=== PATIENT | male | born 1930 | race Caucasian/White ===

== ENCOUNTER 2016-05-16 10:29 | Day surgery (SDC) | payer MEDICARE, BC ==
[~2016-05-16 10:29] MED LIST: EZFE 200200 MG PO; FLOMAX4 PO; JANTOVEN1 MG PO; KLOR-CON M2020 MEQ PO; L40 PO; PRESERVISION A1 EACH PO; PROSCAR5 PO; SPIRO25 PO; TOPXL50 PO; VASOTEC10 PO; Z100 PO; ZAROX2.5B PO
[2016-05-16 11:31] LABS: INTERNATIONAL NORMAL RATI 2.1 UNITS (-); PROTIME (NOT ORD) 23.3 SEC (12.0-14.5)
== END 2016-05-16 23:59 | disposition home health service (06) ==
LOC: DMU 10:29
PROVIDERS: Anesthesiology
DX: Z53.9 Procedure and treatment not carried out, unspecified reason (principal); I11.0 Hypertensive heart disease with heart failure; I50.9 Heart failure, unspecified; M19.90 Unspecified osteoarthritis, unspecified site; D64.9 Anemia, unspecified; Z87.891 Personal history of nicotine dependence; Z98.890 Other specified postprocedural states; Z86.010 Personal history of colon polyps
CPT/HCPCS: 85610

== ENCOUNTER 2016-05-27 10:02 | Day surgery (SDC) | payer MEDICARE, BC ==
--- NOTE | ~2016-05-27 | EGD ---
EGD REPORT [facility] [address] [address] NAME: BARRY HERNANDEZ : 32 STATUS : REG [facility]#: [id number] AGE: 85 ADM/REG DATE : 05/27/16 MR#: [id number] REPORT SERV DATE: 05/27/16 DICTATED BY: AAMIR MCKINNON DATE: 05/27/16 REPORT STATUS : Draft [facility] DATE: 05/27/16 [facility] Patient Name: Barry Hernandez Date of : 1930 Attending MD: AAMIR MCKINNON MD Procedure Date No Time: 05/27/2016 Procedure: Colonoscopy Indications: Heme positive stool, Iron deficiency anemia, Weight loss Referring MD: Melissa Dahl Medicines: as per anesthesia Complications: No immediate complications. Procedure: After I obtained informed consent, the scope was passed under direct vision. Throughout the procedure, the patient's blood pressure, pulse, and oxygen saturations were monitored continuously. The PCF [id number] was introduced through the anus and advanced to the cecum, identified by appendiceal orifice and ileocecal valve. The colonoscopy was performed without difficulty. The patient tolerated the procedure. The quality of the bowel preparation was adequate to identify polyps. Findings: The perianal and digital rectal examinations were normal. A sessile polyp was found in the ascending colon. The polyp was 6 mm in size. The polyp was removed with a jumbo cold forceps. Resection and retrieval were complete. A few small-mouthed diverticula were found in the sigmoid colon. Internal hemorrhoids were found during endoscopy and were moderate. tattoo noted in tv colon Impression: - One 6 mm polyp in the ascending colon. Resected and retrieved. - Diverticulosis in the sigmoid colon. - Internal hemorrhoids. Recommendation: - Await pathology results. Procedure Code(s): --- Professional --- 93624, Colonoscopy, flexible, proximal to splenic flexure; with biopsy, single or multiple Diagnosis Code(s): --- Professional --- D12.2, Benign neoplasm of ascending colon K64.8, Other hemorrhoids K57.30, Diverticulosis of large intestine without EGD REPORT [place] [address] [address] NAME: BARRY HERNANDEZ CATHERINE : 32 STATUS : REG [facility] PAT#: [id number] AGE: 85 ADM/REG DATE : 05/27/16 MR#: [id number] REPORT SERV DATE: 05/27/16 DICTATED BY: AAMIR MCKINNON DATE: 05/27/16 REPORT STATUS : Draft TRANSCRIBED BY: [facility] DATE: 05/27/16 perforation or abscess without bleeding R19.5, Other fecal abnormalities D50.9, Iron deficiency anemia, unspecified R63.4, Abnormal weight loss CPT copyright 2013 [employer]. All rights reserved. The codes documented in this report are preliminary and upon admitting manager review may be revised to meet current compliance requirements. AAMIR MCKINNON MD 05/27/2016 2:04 PM This report has been signed electronically. Number of Addenda: 0 Note Initiated On: 05/27/2016 1:16 PM Scope Withdrawal Time 0 hours 13 minutes 32 seconds [address] [address]
[2016-05-27 10:25] LABS: INTERNATIONAL NORMAL RATI 1.4 UNITS (-)
[2016-05-27 10:26] LABS: PROTIME (NOT ORD) 17.1 SEC (12.0-14.5)
== END 2016-05-27 23:59 | disposition home health service (06) ==
LOC: DMU 10:02
PROVIDERS: Anesthesiology; Internal Medicine Gastroenterology
PROC: 0DBK8ZX Excision of Ascending Colon, Via Natural or Artificial Opening Endoscopic, Diagnostic (ICD-10-PCS; principal; 2016-05-27 11:30)
DX: D12.2 Benign neoplasm of ascending colon (principal); K57.30 Diverticulosis of large intestine without perforation or abscess without bleeding; K64.8 Other hemorrhoids; I11.0 Hypertensive heart disease with heart failure; D50.0 Iron deficiency anemia secondary to blood loss (chronic); I50.9 Heart failure, unspecified; I48.91 Unspecified atrial fibrillation; M19.90 Unspecified osteoarthritis, unspecified site; I73.9 Peripheral vascular disease, unspecified; Z87.891 Personal history of nicotine dependence; Z86.010 Personal history of colon polyps; Z98.890 Other specified postprocedural states
CPT/HCPCS: 85610; 88305

== ENCOUNTER 2016-12-02 08:51 | Inpatient (IN) | payer MEDICARE, BC ==
[~2016-12-02] VITALS: Ht 198.1 cm; Wt 134.1 kg
--- NOTE | ~2016-12-02 | DS ---
Discharge Summary [facility] [address] [place]. [address] NAME: BARRY HERNANDEZ CATHERINE : 32 STATUS : DIS IN PAT#: [id number] AGE: 86 ADM/REG DATE : 12/02/16 MR#: [id number] REPORT SERV DATE: 12/08/16 DICTATED BY: JEANNINE CALDERON DATE: 12/07/16 REPORT STATUS : Draft TRANSCRIBED BY: MODL DATE: 12/07/16 ADMISSION DATE: 12/02/2016 DISCHARGE DATE: 12/07/2016 DISCHARGE DIAGNOSES: 1. Symptomatic anemia status post three units of packed RBC with a history of long- standing iron deficiency anemia with intolerance of iron, but he is going back to taking iron p.o. 2. Chronic Coumadin use. INR was supratherapeutic, was on hold for two days, now back to 2.9. We are going to cut it down to 5 mg per diet, resumed tonight. 3. Failure to thrive with increased immobility. The patient has decided to go to [facility]. 4. Chronic systolic heart failure, was on the home regimen of the diuretics, stable. 5. Left arm hematoma, improved. HISTORY OF PRESENT ILLNESS: This is an 86-year-old male patient, who came to the hospital with weakness and increased immobility. Please see dictated H and P done by Dr. Lewis. HOSPITAL COURSE: He was admitted to hospital with anemia and possible rehab discharge plan. He had three units of packed RBC and improved. After he has been improved, he has been evaluated by physical therapy. Disposition was decided to be [facility]. We waited for [facility] approval and he did actually improve with the physical therapies done here and [facility] has approved for his subacute stay and then the patient will be discharged to [facility] for ongoing rehab. I noticed his blood pressure has been around 90-100 with three diuretics from the home and since he has not been having any issue with volume, will like to cut down his Zaroxolyn to twice a week instead of three times a week. DISCHARGE MEDICATION: 1. Allopurinol 100 mg twice a day. 2. Vitamin D once a day. 3. Vasotec 10 mg twice a day. 4. Ezfe 200 mg once a day. 5. Proscar 5 mg once morning. 6. Lasix 40 mg twice a day. 7. Zaroxolyn 2.5 on Mondays and . 8. Toprol-XL 50 mg once a day. 9. Potassium 20 mEq three times a week. 10.Aldactone 25 mg once a day. 11.Flomax 0.4 mg once a day. 12.Coumadin decreased to 5 mg once a day. 13.Multivitamin. 14.Eye drops. Discharge Summary [place] [address] [address] NAME: BARRY HERNANDEZ CATHERINE : 32 STATUS : DIS IN PAT#: [id number] AGE: 86 ADM/REG DATE : 12/02/16 MR#: [id number] REPORT SERV DATE: 12/08/16 DICTATED BY: JEANNINE CALDERON DATE: 12/07/16 REPORT STATUS : Draft TRANSCRIBED BY: RAYNE DATE: 12/07/16 DISPOSITION: Patient is discharged to [facility] for rehab. The patient's family has been updated on a daily basis and the patient is informed about his discharge and plan of followup and he voiced understanding. TIME SPENT: More than 30 minutes. EKL/MODL Jeannine Calderon M.D. / [id number] CC: Kelly Calhoun [facility]IA [facility]
--- NOTE | ~2016-12-02 | HP ---
History And Physical [place] [id number] [place]. [address] NAME: BARRY HERNANDEZ CATHERINE : 32 STATUS : ADM [facility] PAT#: [id number] AGE: 86 ADM/REG DATE : 12/02/16 MR#: [id number] REPORT SERV DATE: 12/02/16 DICTATED BY: AAMIR PAYNE DATE: 12/02/16 REPORT STATUS : Draft TRANSCRIBED BY: MODL DATE: 12/02/16 DATE OF ADMISSION: 12/02/2016 REASON FOR ADMISSION: Shortness of breath and dyspnea on exertion. HISTORY OF PRESENT ILLNESS: This is an 86-year-old white male, in the assisted living facility in [place]. He moved down here four years ago from [place], [place], where he lived for many years. He has first cardiac pacemaker placed at age 43 because of bradycardia. He has had subsequently four pacemakers placed in the past. He is on Coumadin because of chronic atrial fibrillation. He does have falling and unsteady gait now. He fell and has a huge ecchymosis of his left arm and he also fell and hurt his back. He was in the emergency room at [facility] on 11/27/2016 and was urged to have transfusion as his was hematocrit 21%. He is brought back now with the intention to give transfusion and help with the swelling. His upper extremities have swelling more than usual. His lower extremities are about a swelling as they usually are chronically. His creatinine is up to 1.78 and BUN in the 50 range. He has undergone an EGD by Dr. Aamir Pablo on 05/27/2016 because of heme-positive stool and weight loss. Findings showed a 6 mm polyp in the ascending colon that was resected and retrieved and diverticulosis and internal hemorrhoids. This is the report of the colonoscopy done on that date. PAST MEDICAL HISTORY: He had chronic bradycardia now with a pacemaker. HOME MEDICATIONS: Include the following: Allopurinol 100 mg p.o. b.i.d., vitamin D 1000 units p.o. daily, Vasotec 10 mg p.o. b.i.d., iron polysaccharide 200 mg p.o. daily, Proscar 5 mg p.o. daily, furosemide 40 mg p.o. b.i.d., metolazone 2.5 mg on Thursday, Thursday, Thursday, metoprolol XL one p.o. daily, potassium chloride 20 mEq p.o. on Thursday, Thursday, and Thursday, spironolactone 25 mg p.o. daily, Flomax 0.4 mg p.o. daily, PreserVision one a day, and Jantoven 7 mg p.o. at bedtime. ALLERGIES: NONE ARE KNOWN. SOCIAL HISTORY: He grew up in [place], [place]. His father was a milk man. 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 He lived in [place], [place], where he is and moved down here to be with family. FAMILY HISTORY: His mother lived to be . His father of old age as well. Old age runs in the family. REVIEW OF SYSTEMS: He has had a scrape on his back and fell and cut his left arm. He has had some falling recently. He is in a scooter to help prevent the falling. He does not use a walker and walk as much because of dyspnea on exertion. Recently, he has had little chest pain. He has had swelling, but it is not different from before. His weight was 300 pounds. He has History And Physical [address] [place]. [address] NAME: BARRY HERNANDEZ CATHERINE : 32 STATUS : ADM [facility] PAT#: [id number] AGE: 86 ADM/REG DATE : 12/02/16 MR#: [id number] REPORT SERV DATE: 12/02/16 DICTATED BY: AAMIR PAYNE DATE: 12/02/16 REPORT STATUS : Draft TRANSCRIBED BY: MODL DATE: 12/02/16 had no nosebleed. No ulcers of his legs. He does use compression stockings. 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 The remainder of the review of systems is negative. PHYSICAL EXAMINATION: VITAL SIGNS: His blood pressure is 118/74, heart rate 70, respiratory rate 18, afebrile. HEENT: EOMI. Sclerae are clear. Conjunctivae are pale. NECK: No bruit without any JVD. CHEST: Clear to A and P. HEART: Regular S1 and S2, without murmur, gallop, or click. ABDOMEN: Grossly obese. Nontender. Bowel sounds are positive. EXTREMITIES: He has 4+ pitting edema with compression stockings below the knee, knee joint replacements bilaterally. He has ecchymosis of left upper extremity, cut on the left forearm just below the elbow, scrapes on his back with denuding of skin on the back with surrounding ecchymosis, and he has presacral edema being 2+. NEUROLOGIC: His coffee supervisor is equal and symmetric bilaterally. Coordination is intact. PSYCHIATRIC: His affect is normal. He is alert and oriented and able to give history and converse. LYMPHATICS: There is no adenopathy palpable. SKIN: With multiple ecchymoses and bruising. LABORATORY DATA: His prothrombin time was 29.7, INR was 2.9. ABO blood typing showed O positive, negative antibody screen. His hemoglobin is 6.3, hematocrit 21.7. MCV is 74.3, platelets 239,000, white count is 5.6. BNP was 1084, up from [address] Sands's evaluation. His sodium is 141, potassium 3.8, creatinine 1.78, BUN 58, glucose 58, creatinine clearance 34 mL/minute. Albumin was 3.4. Troponin 0.03. Liver tests were normal. IMAGING: Portable chest x-ray shows severe cardiomegaly, unchanged from previous examination with course and peripheral interstitial markings consistent with fibrotic changes versus edema. He has severe glenohumeral osteoarthritis developing over the last three years on the left side. ASSESSMENT: 1. Symptomatic anemia. 2. Compensated high output congestive heart failure with limited ability to increase heart rate with pacemaker. 3. Congestive heart failure, likely systolic, with cardiomegaly. The patient was an athlete in the past and may be enlarged because of his previous athleticism. 4. Anasarca. 5. Ecchymosis of left arm, greater than right. 6. Recent falling. 7. Increase in immobility. 8. Scrape to the back. 9. Coagulopathy. 10.History of atrial fibrillation. History And Physical [address] [address] NAME: BARRY HERNANDEZ CATHERINE : 32 STATUS : ADM [facility] PAT#: [id number] AGE: 86 ADM/REG DATE : 12/02/16 MR#: [id number] REPORT SERV DATE: 12/02/16 DICTATED BY: AAMIR PAYNE DATE: 12/02/16 REPORT STATUS : Draft TRANSCRIBED BY: RAYNE DATE: 12/02/16 11.Microcytic-hypochromic anemia, appropriately on iron therapy orally. He will also get an iron load from the blood transfusion today. PLAN: We are going to go ahead and give him 2 units of packed red blood cells each over two hours and separate them by 8 hours followed by Lasix. We will replace the potassium. We will check the BMP in the morning. His creatinine is elevated and he does have evidence of chronic kidney disease stage 3 with this. I discussed end of life issues. The patient is not to be resuscitated in the event of cardiac arrest other than IV fluid, potentially pressor support, but no intubation, and no chest compressions during the hospitalization. TASNEEM/RAYNE Aamir Payne M.D. / [id number] CC: Kelly Blue LYDIA B William Jeffery Kemp, M.D.
[2016-12-02 10:17] LABS: BASOPHILS 0.9 %; BASOPHILS ABSOLUTE 0.05 10/3/uL (0.0-0.16); EOSINOPHILS 1.6 %; EOSINOPHILS ABSOLUTE 0.09 10/3/uL (0.0-0.53); ER CBC TAT 0 Hrs 09 Mins; IMMATURE GRANULOCYTES 0.2 %; IMMATURE GRANULOCYTES ABSOLUTE 0.01 10/3/uL (0.0-0.11); LYMPHOCYTES 15.2 %; LYMPHOCYTES ABSOLUTE 0.86 10/3/uL (0.67-4.30); MEAN PLATELET VOLUME 9.1 fL (9.2-13.0); MONOCYTES ABSOLUTE 0.45 10/3/uL (0.21-1.20); NEUTROPHILS 74.1 %; NEUTROPHILS ABSOLUTE 4.18 10/3/uL (2.02-8.40); RBC DISTRIBUTION WIDTH 20.1 % (12.0-16.0); RED CELL COUNT 2.92 10/6/uL (4.7-6.1); WHITE BLOOD CELLS 5.6 10/3/uL (4.5-10.5)
[2016-12-02 10:18] LABS: HEMATOCRIT 21.7 % (40.0-51.0); HEMOGLOBIN 6.3 g/dL (13.6-17.8); MANUAL DIFF NO %; MEAN CORPUSCULAR HEMOGLOB 21.6 pg (26.0-34.0); MEAN CORPUSCULAR VOLUME 74.3 fL (80-100); PLATELET COUNT 239 10/3/uL (150-400)
[2016-12-02 10:36] LABS: A/G RATIO 0.9 (0.7-1.9); ALBUMIN 3.3 G/DL (3.5-5.0); ALKALINE PHOSPHATASE 93 U/L (45-117); BUN (BLOOD UREA NITROGEN) 58 MG/DL (6-23); CALCIUM, SERUM 8.9 MG/DL (8.5-10.4); CHLORIDE, SERUM 107 MMOL/L (96-112); CO2 (CARBON DIOXIDE) 25 MMOL/L (24-34); CREATININE 1.78 MG/DL (0.70-1.30); GFR AFRICAN AMERICAN 39 ML/MIN (>=60); GFR NON AFRICAN AMERICAN 34 ML/MIN (>=60); GLOBULIN 3.5 G/DL (2.5-4.1); GLUCOSE, SERUM 106 MG/DL (60-99); POTASSIUM, SERUM 3.8 MMOL/L (3.5-5.3); SGOT(AST) 23 U/L (5-40); SGPT(ALT) 14 U/L (5-65); SODIUM, SERUM 141 MMOL/L (135-148); TOTAL BILIRUBIN 2.5 MG/DL (0-1.2); TOTAL PROTEIN 6.8 G/DL (6.0-8.5); TROPONIN I 0.03 NG/ML (<0.05)
[2016-12-02] MEDS ORDERED: VITAMIN D1000 UNI1 PO (10:44)
[2016-12-02 10:47] LABS: ACANTHOCYTES OCC (0-2/OIF); ANISOCYTOSIS 1+ (5-10/OIF) (0-5/OIF); MICROCYTES 1+ (5-10/OIF) (0-5/OIF); PLATELET ESTIMATE ADQ (ADEQUATE); RBC MORPHOLOGY ABN (NORMAL); TEARDROP SHAPED RBCS FEW (3-10/OIF)
[2016-12-02 11:32] LABS: INTERNATIONAL NORMAL RATI 2.9 UNITS (-); PROTIME (NOT ORD) 29.7 SEC (12.0-14.5)
[2016-12-03 06:11] LABS: BASOPHILS 0.9 %; BASOPHILS ABSOLUTE 0.06 10/3/uL (0.0-0.16); EOSINOPHILS 3.2 %; EOSINOPHILS ABSOLUTE 0.22 10/3/uL (0.0-0.53); IMMATURE GRANULOCYTES 0.4 %; IMMATURE GRANULOCYTES ABSOLUTE 0.03 10/3/uL (0.0-0.11); LYMPHOCYTES 13.1 %; MEAN CORPUS HGB CONC 30.4 g/dL (32.0-36.0); MEAN CORPUSCULAR HEMOGLOB 22.9 pg (26.0-34.0); MEAN CORPUSCULAR VOLUME 75.4 fL (80-100); MEAN PLATELET VOLUME 9.7 fL (9.2-13.0); MONOCYTES 10.9 %; MONOCYTES ABSOLUTE 0.75 10/3/uL (0.21-1.20); NEUTROPHILS 71.5 %; NEUTROPHILS ABSOLUTE 4.92 10/3/uL (2.02-8.40); PLATELET COUNT 241 10/3/uL (150-400); RED CELL COUNT 3.41 10/6/uL (4.7-6.1); WHITE BLOOD CELLS 6.9 10/3/uL (4.5-10.5)
[2016-12-03 06:12] LABS: HEMATOCRIT 25.7 % (40.0-51.0); HEMOGLOBIN 7.8 g/dL (13.6-17.8); MANUAL DIFF NO %
[2016-12-03 06:18] LABS: INTERNATIONAL NORMAL RATI 2.9 UNITS (-); PROTIME (NOT ORD) 30.2 SEC (12.0-14.5)
[2016-12-03 06:32] LABS: BUN (BLOOD UREA NITROGEN) 58 MG/DL (6-23); CALCIUM, SERUM 9.3 MG/DL (8.5-10.4); CHLORIDE, SERUM 105 MMOL/L (96-112); CO2 (CARBON DIOXIDE) 26 MMOL/L (24-34); CREATININE 1.68 MG/DL (0.70-1.30); GFR AFRICAN AMERICAN 42 ML/MIN (>=60); GFR NON AFRICAN AMERICAN 36 ML/MIN (>=60); GLUCOSE, SERUM 99 MG/DL (60-99); POTASSIUM, SERUM 3.6 MMOL/L (3.5-5.3); SODIUM, SERUM 142 MMOL/L (135-148)
[2016-12-04 06:29] LABS: BASOPHILS 0.5 %; BASOPHILS ABSOLUTE 0.04 10/3/uL (0.0-0.16); EOSINOPHILS ABSOLUTE 0.31 10/3/uL (0.0-0.53); HEMATOCRIT 27.5 % (40.0-51.0); HEMOGLOBIN 8.3 g/dL (13.6-17.8); IMMATURE GRANULOCYTES 0.3 %; IMMATURE GRANULOCYTES ABSOLUTE 0.02 10/3/uL (0.0-0.11); LYMPHOCYTES 15.3 %; LYMPHOCYTES ABSOLUTE 1.18 10/3/uL (0.67-4.30); MEAN CORPUS HGB CONC 30.2 g/dL (32.0-36.0); MEAN CORPUSCULAR HEMOGLOB 23.1 pg (26.0-34.0); MEAN CORPUSCULAR VOLUME 76.6 fL (80-100); MEAN PLATELET VOLUME 9.2 fL (9.2-13.0); MONOCYTES 7.6 %; MONOCYTES ABSOLUTE 0.59 10/3/uL (0.21-1.20); NEUTROPHILS 72.3 %; NEUTROPHILS ABSOLUTE 5.58 10/3/uL (2.02-8.40); PLATELET COUNT 237 10/3/uL (150-400); RBC DISTRIBUTION WIDTH 20.6 % (12.0-16.0); RED CELL COUNT 3.59 10/6/uL (4.7-6.1); WHITE BLOOD CELLS 7.7 10/3/uL (4.5-10.5)
[2016-12-04 06:30] LABS: MANUAL DIFF NO %
[2016-12-04 06:37] LABS: INTERNATIONAL NORMAL RATI 3.7 UNITS (-)
[2016-12-04 08:32] LABS: CALCIUM, SERUM 8.9 MG/DL (8.5-10.4); CHLORIDE, SERUM 107 MMOL/L (96-112); CO2 (CARBON DIOXIDE) 24 MMOL/L (24-34); CREATININE 1.61 MG/DL (0.70-1.30); GFR AFRICAN AMERICAN 45 ML/MIN (>=60); GFR NON AFRICAN AMERICAN 38 ML/MIN (>=60); GLUCOSE, SERUM 102 MG/DL (60-99); POTASSIUM, SERUM 3.8 MMOL/L (3.5-5.3); SODIUM, SERUM 141 MMOL/L (135-148)
[2016-12-04 08:44] LABS: BUN (BLOOD UREA NITROGEN) 53 MG/DL (6-23)
[2016-12-05 07:12] LABS: INTERNATIONAL NORMAL RATI 3.6 UNITS (-); PROTIME (NOT ORD) 35.8 SEC (12.0-14.5)
[2016-12-06 06:47] LABS: INTERNATIONAL NORMAL RATI 3.5 UNITS (-); PROTIME (NOT ORD) 35.2 SEC (12.0-14.5)
[2016-12-07 04:54] LABS: BASOPHILS 0.5 %; BASOPHILS ABSOLUTE 0.03 10/3/uL (0.0-0.16); EOSINOPHILS 5.5 %; EOSINOPHILS ABSOLUTE 0.32 10/3/uL (0.0-0.53); HEMATOCRIT 25.7 % (40.0-51.0); HEMOGLOBIN 7.7 g/dL (13.6-17.8); IMMATURE GRANULOCYTES 0.3 %; IMMATURE GRANULOCYTES ABSOLUTE 0.02 10/3/uL (0.0-0.11); LYMPHOCYTES 15.8 %; LYMPHOCYTES ABSOLUTE 0.92 10/3/uL (0.67-4.30); MEAN CORPUSCULAR HEMOGLOB 23.3 pg (26.0-34.0); MEAN CORPUSCULAR VOLUME 77.9 fL (80-100); MEAN PLATELET VOLUME 8.9 fL (9.2-13.0); MONOCYTES 8.2 %; MONOCYTES ABSOLUTE 0.48 10/3/uL (0.21-1.20); NEUTROPHILS 69.7 %; NEUTROPHILS ABSOLUTE 4.06 10/3/uL (2.02-8.40); PLATELET COUNT 225 10/3/uL (150-400); RBC DISTRIBUTION WIDTH 22.7 % (12.0-16.0); RETICULOCYTE COUNT ABSOLUTE 99.3 10/3/uL (20.2-119.8); WHITE BLOOD CELLS 5.8 10/3/uL (4.5-10.5)
[2016-12-07 04:56] LABS: MANUAL DIFF NO %
[2016-12-07 05:00] LABS: INTERNATIONAL NORMAL RATI 2.9 UNITS (-); PROTIME (NOT ORD) 30.1 SEC (12.0-14.5)
[2016-12-07 05:12] LABS: % IRON SAT 12 % (20-50); BUN (BLOOD UREA NITROGEN) 53 MG/DL (6-23); CALCIUM, SERUM 8.5 MG/DL (8.5-10.4); CHLORIDE, SERUM 103 MMOL/L (96-112); CO2 (CARBON DIOXIDE) 28 MMOL/L (24-34); CREATININE 1.57 MG/DL (0.70-1.30); FERRITIN 70 NG/ML (26-388); GFR AFRICAN AMERICAN 46 ML/MIN (>=60); GFR NON AFRICAN AMERICAN 40 ML/MIN (>=60); GLUCOSE, SERUM 91 MG/DL (60-99); IRON BINDING CAPACITY 390 MCG/DL (250-450); IRON, SERUM 48 MCG/DL (35-150); POTASSIUM, SERUM 3.2 MMOL/L (3.5-5.3); SODIUM, SERUM 140 MMOL/L (135-148)
[2016-12-07 07:15] LABS: ELLIPTOCYTES 1+ (3-10/OIF) (0-2/OIF); POIKILOCYTOSIS 1+ (5-10/OIF) (0-5/OIF)
[2016-12-07 07:16] LABS: MICROCYTES 1+ (5-10/OIF) (0-5/OIF)
== END 2016-12-07 19:17 | DRG 812 ==
LOC: ER 08:51 → 2SO 11:40 → 4EA 11:40 → 2SO 13:03
PROVIDERS: Internal Medicine; Student in an Organized Health Care Education/Training Program
PROC: 30233N1 Transfusion of Nonautologous Red Blood Cells into Peripheral Vein, Percutaneous Approach (ICD-10-PCS; principal; 2016-12-02)
DX: D50.9 Iron deficiency anemia, unspecified (principal); I50.22 Chronic systolic (congestive) heart failure; R00.1 Bradycardia, unspecified; I48.2 Chronic atrial fibrillation; S50.11XA Contusion of right forearm, initial encounter; N18.9 Chronic kidney disease, unspecified; R62.7 Adult failure to thrive; R26.81 Unsteadiness on feet; W18.30XA Fall on same level, unspecified, initial encounter; K57.30 Diverticulosis of large intestine without perforation or abscess without bleeding; K64.9 Unspecified hemorrhoids; M19.012 Primary osteoarthritis, left shoulder; S30.810A Abrasion of lower back and pelvis, initial encounter; Z95.0 Presence of cardiac pacemaker; Y92.009 Unspecified place in unspecified non-institutional (private) residence as the place of occurrence of the external cause; Z86.010 Personal history of colon polyps; Z79.01 Long term (current) use of anticoagulants
CPT/HCPCS: 36415; 36430; 71010; 80048; 80053; 82728; 83540; 83550; 83880; 84132; 84484; 85025; 85045; 85610; 86850; 86900; 86901; 86920; 93005; 97110-GP; 97162-GP; 97530-GP; 99285; A9270-GY; G8978-CM-GP; G8979-CL-GP; J1940; P9016